=== PATIENT | male | born 1960 | race African-American/Black ===

== ENCOUNTER 2016-09-16 09:52 | Observation (INO) | payer MEDICAID, OTHER ==
[~2016-09-16] VITALS: Ht 188 cm; Wt 159.5 kg
[~2016-09-16 09:52] MED LIST: APIX5TAB PO; DILA50CH CHEW; FAMO40TA PO; HYDR-2768 PO; HYDR10TA23 PO; LEVE500 PO; LEVEMIR SC; MAGN400T19 PO; PRIL20CA PO; PRIN20TA2 PO; TRAZ100 PO; ZOFR4TAB3 SL; ZOLO20CO PO
[2016-09-16] MEDS ORDERED: LORazepam 2 MG/ML VIAL IV PUSH ONE (10:15)
[2016-09-16] MEDS ORDERED: SODIUM CHLORIDE 0.9% FLUSH 5 ML FLUSH IVF PRN (10:15)
--- NOTE | 2016-09-16 10:17 | PD ---
HPI Chief Complaint: Seizure Time Seen by Provider: 10:01 Travel History International Travel<30 days: No Contact w/Intl Traveler<30days: No History of Present Illness HPI This is a 56-year-old male who has a history of seizures and prior stroke with left-sided weakness who presents to the emergency department with involuntary movements and twitching. The patient has had twitching that started this morning. The staff noticed that he was normal at 8 AM but when they checked on him again they saw the he was moving his body back and forth. Patient's never had symptoms like this before. He is on both Keppra and Dilantin for seizures. It's unclear to me, one reports says that he has not been taking his Dilantin but on his medical record it appears that they have recently increased his Dilantin level. The patient has no other complaints. PFSH Past Medical History Anemia: Yes Atrial Fibrillation: Yes Anxiety: Yes Congestive Heart Failure: Yes Cerebrovascular Accident: Yes Dementia: Yes Diabetes: Yes Hypertension: Yes Social History Alcohol Use: No Tobacco Use: No Substance Use: No Allergies-Medications (Allergen,Severity, Reaction): Coded Allergies: No Known Allergies (Unverified , 12/17/15) Reported Meds & Prescriptions Reported Meds & Active Scripts Active Reported Milk of Magnesia Liq (Magnesium Hydroxide) 400 Mg/5 Ml Susp 30 Ml PO Q4HR PRN Novolog Inj (Insulin Aspart) 1,000 Unit/10 Ml Vial 3-12 Units SQ DIRECTED Sliding Scale: 0-70-give orange juice, notify Physician, repeat in 1hr, 71-150=0 units, 151-200=3 units, 201-250=5 units, 251-300=8 units, 301-400=10 units, >400=12 units & repeat BS check in 2hrs, if > 150 notify Loperamide (Loperamide HCl) 2 Mg Cap 4 Mg PO INITIAL DOSE PRN After initial dose of 4mg, give 1 cap (2mg) after each loose stool. Not to exceed 8 caps/24hrs. May take liquid if unable to take capsules Fleet Enema Rectal (Sodium Phosphates Rectal) 7-19 Gm/118 Ml Enem 1 Applic [place] DAILY PRN Dulcolax Supp (Bisacodyl) 10 Mg Supp 10 Mg [place] DAILY PRN Tylenol (Acetaminophen) 325 Mg Tab 650 Mg PO Q4H PRN Glucagon Emergency Inj Kit (Glucagon (Rdna) Inj Kit) 1 Mg Kit 1 Mg IM ONCE PRN Mylanta Liq (Rnhtwrfl-Aocnwdtez-Eznyieucmrq Liq) 200-200-20 Mg/5 Ml Susp 30 Ml PO Q4HR PRN If not relieved within 48hrs contact Physician Dilantin (Phenytoin Extended) 100 Mg Cap 200 Mg PO HS Artificial Tears Opth Drops (Polyvinyl Alcohol) 1.4% Soln 1 Drop EACH EYE BID Thera-M (Multiple Vitamins W/ Minerals) 1 Tab 1 Tab PO DAILY Zoloft (Sertraline HCl) 50 Mg Tab 50 Mg PO DAILY Seroquel (Quetiapine Fumarate) 25 Mg Tab 25 Mg PO HS Magnesium Oxide 400 Mg Tab 400 Mg PO TID Losartan (Losartan Potassium) 50 Mg Tab 50 Mg PO DAILY Levothyroxine (Levothyroxine Sodium) 50 Mcg Tab 50 Mcg PO DAILY Keppra (Levetiracetam) 500 Mg Tab 500 Mg PO Q12HR Levsin (Hyoscyamine Sulfate) 0.125 Mg Tab 0.25 Mg PO TID Hydrochlorothiazide 25 Mg Tab 25 Mg PO DAILY Hydralazine (Hydralazine HCl) 25 Mg Tab 25 Mg PO TID Take with a meal Glipizide 5 Mg Tab 5 Mg PO DAILY Lasix (Furosemide) 40 Mg Tab 40 Mg PO DAILY Eliquis (Apixaban) 2.5 Mg Tab 2.5 Mg PO BID Lanoxin (Digoxin) 0.125 Mg Tab 0.125 Mg PO DAILY AT 5PM Klonopin (Clonazepam) 0.5 Mg Tab 0.5 Mg PO TID Coreg (Carvedilol) 25 Mg Tab 25 Mg PO BID Atorvastatin (Atorvastatin Calcium) 80 Mg Tab 80 Mg PO HS Aspirin 81 Low Dose (Aspirin) 81 Mg Chew 81 Mg PO DAILY Amlodipine (Amlodipine Besylate) 10 Mg Tab 10 Mg PO DAILY Amiodarone (Amiodarone HCl) 200 Mg Tab 200 Mg PO DAILY Acidophilus (Probiotic Product) 1 Cap Cap 1 Cap PO DAILY Review of Systems Except as stated in HPI: all other systems reviewed are Neg Physical Exam Narrative GENERAL:Well appearing, no acute distress SKIN: Warm and dry. HEAD: Atraumatic. Normocephalic. EYES: Pupils equal and round. No injection or drainage. ENT: Moist mucous membranes NECK: Trachea midline. CARDIOVASCULAR: Regular rate and rhythm. No murmur appreciated. RESPIRATORY: Clear to auscultation. Breath sounds equal bilaterally. GASTROINTESTINAL: Abdomen soft, non-tender, nondistended. MUSCULOSKELETAL: No obvious deformities. NEUROLOGICAL: Awake and alert. No obvious cranial nerve deficits. 4 out of 5 strength in the left upper and left lower extremity. Involuntary left upper extremity and left lower extremity jerking with jerking of the head to the left side. PSYCHIATRIC: Appropriate mood and affect; insight and judgment normal. Data Data Last Documented VS Vital Signs Date Time Temp Pulse Resp B/P Pulse Ox O2 Delivery O2 Flow Rate FiO2 09/16/16 10:26 88 18 141/77 98 Room Air 09/16/16 10:21 98.3 Orders Alcohol (Ethanol) (09/16/16 10:02) Complete Blood Count With Diff (09/16/16 10:02) Comprehensive Metabolic Panel (09/16/16 10:02) Drug Screen, Random Urine (09/16/16 10:02) Urinalysis - C+S If Indicated (09/16/16 10:02) Ct Brain W/O Iv Contrast(Rout) (09/16/16 10:02) Blood Glucose (09/16/16 10:02) Ecg Monitoring (09/16/16 10:02) Iv Access Insert/Monitor (09/16/16 10:02) Oximetry (09/16/16 10:02) Sodium Chloride 0.9% Flush (Ns Flush) (09/16/16 10:15) Lorazepam Inj (Ativan Inj) (09/16/16 10:15) Levetiracetam (09/16/16 10:02) Phenytoin (Dilantin) (09/16/16 10:02) Sodium Chlor 0.9% 1000 Ml Inj (Ns 1000 M (09/16/16 11:00) Fosphenytoin Inj (Cerebyx Inj) (09/16/16 12:00) Fosphenytoin Inj (Cerebyx Inj) (09/16/16 12:00) Consult Neurology (09/16/16 ) Admit Order (Ed Use Only) (09/16/16 ) Labs Laboratory Tests Test 09/16/16 09/16/16 10:19 11:00 White Blood Count 6.9 TH/MM3 Red Blood Count 3.54 MIL/MM3 Hemoglobin 11.6 GM/DL Hematocrit 34.6 % Mean Corpuscular Volume 97.9 FL Mean Corpuscular Hemoglobin 32.7 PG Mean Corpuscular Hemoglobin 33.4 % Concent Red Cell Distribution Width 14.4 % Platelet Count 201 TH/MM3 Mean Platelet Volume 8.3 FL Neutrophils (%) (Auto) 70.1 % Lymphocytes (%) (Auto) 15.0 % Monocytes (%) (Auto) 10.4 % Eosinophils (%) (Auto) 3.6 % Basophils (%) (Auto) 0.9 % Neutrophils # (Auto) 4.8 TH/MM3 Lymphocytes # (Auto) 1.0 TH/MM3 Monocytes # (Auto) 0.7 TH/MM3 Eosinophils # (Auto) 0.2 TH/MM3 Basophils # (Auto) 0.1 TH/MM3 CBC Comment DIFF FINAL Differential Comment Sodium Level 139 MEQ/L Potassium Level 5.2 MEQ/L Chloride Level 104 MEQ/L Carbon Dioxide Level 28.4 MEQ/L Anion Gap 7 MEQ/L Blood Urea Nitrogen 24 MG/DL Creatinine 1.36 MG/DL Estimat Glomerular Filtration 66 ML/MIN Rate Random Glucose 142 MG/DL Calcium Level 8.6 MG/DL Total Bilirubin 0.3 MG/DL Aspartate Amino Transf 44 U/L (AST/SGOT) Alanine Aminotransferase 39 U/L (ALT/SGPT) Alkaline Phosphatase 129 U/L Total Protein 7.7 GM/DL Albumin 3.0 GM/DL Phenytoin (Dilantin) Level 6.4 MCG/ML Ethyl Alcohol Level LESS THAN 3 MG/DL Urine Color YELLOW Urine Turbidity CLEAR Urine pH 6.5 Urine Specific [place] 1.014 Urine Protein NEG mg/dL Urine Glucose (UA) NEG mg/dL Urine Ketones NEG mg/dL Urine Occult Blood NEG Urine Nitrite NEG Urine Bilirubin NEG Urine Urobilinogen LESS THAN 2.0 MG/DL Urine Leukocyte Esterase NEG Urine RBC LESS THAN 1 /hpf Urine WBC LESS THAN 1 /hpf Urine Squamous Epithelial <1 /hpf Cells Microscopic Urinalysis Comment CATH-CULT NOT IND Urine Opiates Screen NEG Urine Barbiturates Screen NEG Urine Amphetamines Screen NEG Urine Benzodiazepines Screen NEG Urine Cocaine Screen NEG Urine Cannabinoids Screen NEG MDM Medical Decision Making Medical Screen Exam Complete: Yes Emergency Medical Condition: Yes Interpretation(s) Afebrile, no tachycardia, hypertensive Mild anemia Mild hyperkalemia likely hemolysis Mild renal insufficiency Phenytoin is 6.4 Urine drug screens negative Alcohol is negative Urinalysis: No infection Differential Diagnosis Partial seizure, ischemic stroke, hemorrhagic stroke, tremor, dystonic reaction Narrative Course This is a 56-year-old male who presents to the emergency department with a history of stroke with repetitive jerking movements in the left upper and left lower extremity consistent with a partial seizure. Patient was given 2 mg of IV Ativan and his symptoms improved significantly. He was found to have a subtherapeutic Dilantin level. He was given a fosphenytoin bolus. Labs are obtained which were all reassuring. I spoke to neurology who agreed the patient should be admitted for further evaluation. Physician Communication Physician Communication Discussed with Dr. Hoyt Diagnosis Primary Impression: Partial seizure Admitting Information Admitting Physician Requests: Admit Faye Beltre MD Sep 16, 2016 10:16
[2016-09-16 10:21] VITALS: BP 141/88; PULSE 79; RESP 18; TEMP 98.3; O2SAT 96
[2016-09-16 10:26] VITALS: BP 141/77; PULSE 88; RESP 18; O2SAT 98
[2016-09-16 10:37] LABS: AUTOMATED NEUTROPHIL # 4.8 TH/MM3 (1.8-7.7); BASOPHIL # 0.1 TH/MM3 (0-0.2); BASOPHIL % 0.9 % (0.0-2.0); EOSINOPHIL # 0.2 TH/MM3 (0-0.4); EOSINOPHIL % 3.6 % (0.0-4.0); HEMATOCRIT 34.6 % (39.0-51.0); HEMO FLAGS DIFF FINAL; MEAN CELL VOLUME 97.9 FL (80.0-100.0); MEAN CORPUSCULAR HEMOGLOBIN 32.7 PG (27.0-34.0); MEAN CORPUSCULAR HGB CONC 33.4 % (32.0-36.0); MONO % 10.4 % (0.0-8.0); NEUT % 70.1 % (16.0-70.0); PLATELET COUNT 201 TH/MM3 (150-450); RED BLOOD COUNT 3.54 MIL/MM3 (4.50-5.90); RED CELL DISTRIBUTION WIDTH 14.4 % (11.6-17.2); WHITE BLOOD COUNT 6.9 TH/MM3 (4.0-11.0)
--- NOTE | 2016-09-16 10:51 | RADRPT ---
EXAM DATE/TIME: 09/16/2016 10:22 [place] COMPARISON: CT BRAIN W/O CONTRAST, May 08, 2015, 20:16. INDICATIONS : Twitching for one day. RADIATION DOSE: 56.35 CTDIvol (mGy) MEDICAL HISTORY : stroke SURGICAL HISTORY : Craniotomy. ENCOUNTER: Initial ACUITY: 1 day PAIN SCALE: 5/10 LOCATION: cranial TECHNIQUE: Multiple contiguous axial images were obtained of the head. Using automated exposure control and adj ustment of the mA and/or kV according to patient size, radiation dose was kept as low as reasonably a chievable to obtain optimal diagnostic quality images. FINDINGS: Image quality is degraded by motion artifact. There has been prior right craniotomy and craniectomy a nd some type of mesh implant is present along the high right calvarium. There is stable large area of encephalomalacia involving the right frontal and parietal lobes as well as a portion of the right te mporal lobe. There is mild ex vacuo dilatation of the right lateral ventricle. No midline shift or he rniation is present. Ventricles are normal in size. No acute blood products or is identified and no m ass lesion or findings to suggest acute ischemia are seen. CONCLUSION: Motion degraded but stable examination. No acute finding is identified. There has been prior right-si de surgery with stable large area of encephalomalacia primarily involving the frontal and parietal lo bes. Benito Doss MD on September 16, 2016 at 10:47 Board Certified Radiologist. This report was verified electronically.
[2016-09-16 10:54] LABS: ANION GAP 7 MEQ/L (5-15); AST (GOT) 44 U/L (15-37); BICARBONATE 28.4 MEQ/L (21.0-32.0); BLOOD UREA NITROGEN 24 MG/DL (7-18); CHLORIDE 104 MEQ/L (98-107); GLOMERULAR FILTRATION RATE 66 ML/MIN (>89); SODIUM (NA) 139 MEQ/L (136-145)
[2016-09-16] MEDS ORDERED: SODIUM CHLOR 0.9% 1000 ML INJ 1,000 ML IV SCH (11:00)
[2016-09-16 11:02] LABS: POTASSIUM 5.2 MEQ/L (3.5-5.1)
[2016-09-16 11:03] LABS: ALKALINE PHOSPHATASE 129 U/L (45-117); ALT (GPT) 39 U/L (12-78); TOTAL BILIRUBIN ADULT 0.3 MG/DL (0.2-1.0)
[2016-09-16 11:28] LABS: BLOOD, URINE NEG (NEG); COMMENT (UR) CATH-CULT NOT IND; CULTURE IF INDICATED CATH CULTURE NOT IND; GLUCOSE,URINE NEG (NEG); KETONE, URINE NEG (NEG); NITRITE,URINE NEG (NEG); PH, URINE 6.5 (5.0-8.5); SQUAMOUS EPITHELIAL CELL URINE <1 /hpf (0-5); URINE COLOR YELLOW (YELLW/STRAW)
[2016-09-16] MEDS ORDERED: AMLO10TA2 PO (11:58)
[2016-09-16] MEDS ORDERED: AMIO200T PO (11:58)
[2016-09-16] MEDS ORDERED: TYLE325T PO (11:58)
[2016-09-16] MEDS ORDERED: GLIP5TAB8 PO (11:58)
[2016-09-16] MEDS ORDERED: NOVOLOGP2 SQ (11:58)
[2016-09-16] MEDS ORDERED: LEVE500 PO (11:58)
[2016-09-16] MEDS ORDERED: ASPI81CH3 PO (11:58)
[2016-09-16] MEDS ORDERED: ZOLO50TA PO (11:58)
[2016-09-16] MEDS ORDERED: FURO1TAB60 PO (11:58)
[2016-09-16] MEDS ORDERED: HYDR25TA35 PO (11:58)
[2016-09-16] MEDS ORDERED: CLON.5 PO (11:58)
[2016-09-16] MEDS ORDERED: FLEEENE3 PR (11:58)
[2016-09-16] MEDS ORDERED: LOSA50TA PO (11:58)
[2016-09-16] MEDS ORDERED: THERTAB17 PO (11:58)
[2016-09-16] MEDS ORDERED: POLY99.0 EACH EYE (11:58)
[2016-09-16] MEDS ORDERED: LOPE2CAP PO (11:58)
[2016-09-16] MEDS ORDERED: HYDR25TA5 PO (11:58)
[2016-09-16] MEDS ORDERED: MYLASUS2 PO (11:58)
[2016-09-16] MEDS ORDERED: SERO25TA PO (11:58)
[2016-09-16] MEDS ORDERED: APIX2.5T PO (11:58)
[2016-09-16] MEDS ORDERED: LEVS0.123 PO (11:58)
[2016-09-16] MEDS ORDERED: LANO0.1212 PO (11:58)
[2016-09-16] MEDS ORDERED: DULC10SU3 PR (11:58)
[2016-09-16] MEDS ORDERED: ATOR1TAB18 PO (11:58)
[2016-09-16] MEDS ORDERED: CORE25TA PO (11:58)
[2016-09-16] MEDS ORDERED: PROB1CAP12 PO (11:58)
[2016-09-16] MEDS ORDERED: GLUC1KIT IM (11:58)
[2016-09-16] MEDS ORDERED: DILA100C PO (11:58)
[2016-09-16] MEDS ORDERED: LEVO50TA4 PO (11:58)
[2016-09-16] MEDS ORDERED: MILKSUS PO (11:58)
[2016-09-16] MEDS ORDERED: MAGN400T2 PO (11:58)
[2016-09-16] MEDS ORDERED: FOSPHENYTOIN INJ 1,500 MGPE in SODIUM CHLORIDE 0.9% INJ 100 ML IV ONE (12:00)
[2016-09-16] MEDS ORDERED: FOSPHENYTOIN SODIUM 500 MG PE/10 ML VIAL IV ONE (12:00)
[2016-09-16] MEDS ORDERED: ACETAMINOPHEN 325 MG TAB PO PRN (12:45)
[2016-09-16] MEDS ORDERED: ENOXAPARIN SODIUM 40 MG/0.4 ML SYRINGE SQ SCH ×2 (12:45→15:00)
[2016-09-16] MEDS ORDERED: MAGNESIUM HYDROXIDE SUSP 30 ML CUP PO PRN (12:45)
[2016-09-16] MEDS ORDERED: GLUCAGON 1 MG/ML VIAL OTHER PRN (12:45)
[2016-09-16] MEDS ORDERED: DEXTROSE 50% IN WATER 50 ML VIAL(D50) IV PUSH PRN (12:45)
[2016-09-16 12:49] LABS: AMPHETAMINE, URINE NEG (NEG); BARBITURATES, URINE NEG (NEG); COCAINE, URINE NEG (NEG)
[2016-09-16] MEDS: PHENYTOIN SODIUM 100 MG CAP PO SCH ×2 (14:00→22:41)
[2016-09-16] MEDS: clonazePAM 0.5 MG TAB PO SCH ×2 (14:19→16:19)
[2016-09-16 16:00] VITALS: BP 133/66; PULSE 73; RESP 16; TEMP 96; O2SAT 100
[2016-09-16] MEDS: INSULIN ASPART SUPPLEMENTAL SCALE SQ SCH ×2 (16:00→21:00)
[2016-09-16] MEDS: hydrALAZINE HCL 25 MG TAB PO SCH ×2 (16:19→17:29)
--- NOTE | 2016-09-16 16:43 | PD.CONS ---
History of Present Illness Service Neurology Consult Requested By medical Reason for Consult juan j Primary Care Physician Robert Stephenosn M.D. History of Present Illness 56-year-old male who has a history of seizures and prior stroke with left-sided weakness who presents to the emergency department with involuntary movements and twitching. witnessed by medical personnel. given ativan with cessation. dilantin level on eliquis, keppra, dilantin. ct brain no acute lesion. 11/2014 [place] stroke with left sided weakness anf juan j's. follows with pcp, no neurologist locally. states dilantin level fluctuates and asks for alternatives. PFSH Past Medical History Anemia: Yes Atrial Fibrillation: Yes Anxiety: Yes Congestive Heart Failure: Yes Cerebrovascular Accident: Yes Dementia: Yes Diabetes: Yes Hypertension: Yes Social History Alcohol Use: No Tobacco Use: No Substance Use: No Allergies-Medications (Allergen,Severity, Reaction): Coded Allergies: No Known Allergies (Unverified , 12/17/15) Reported Meds & Prescriptions Reported Meds & Active Scripts Active Reported Milk of Magnesia Liq (Magnesium Hydroxide) 400 Mg/5 Ml Susp 30 Ml PO Q4HR PRN Novolog Inj (Insulin Aspart) 1,000 Unit/10 Ml Vial 3-12 Units SQ DIRECTED Sliding Scale: 0-70-give orange juice, notify Physician, repeat in 1hr, 71-150=0 units, 151-200=3 units, 201-250=5 units, 251-300=8 units, 301-400=10 units, >400=12 units & repeat BS check in 2hrs, if > 150 notify Loperamide (Loperamide HCl) 2 Mg Cap 4 Mg PO INITIAL DOSE PRN After initial dose of 4mg, give 1 cap (2mg) after each loose stool. Not to exceed 8 caps/24hrs. May take liquid if unable to take capsules Fleet Enema Rectal (Sodium Phosphates Rectal) 7-19 Gm/118 Ml Enem 1 Applic [place] DAILY PRN Dulcolax Supp (Bisacodyl) 10 Mg Supp 10 Mg [place] DAILY PRN Tylenol (Acetaminophen) 325 Mg Tab 650 Mg PO Q4H PRN Glucagon Emergency Inj Kit (Glucagon (Rdna) Inj Kit) 1 Mg Kit 1 Mg IM ONCE PRN Mylanta Liq (Ekxgkkhd-Iphkijvir-Hhzkizdenwu Liq) 200-200-20 Mg/5 Ml Susp 30 Ml PO Q4HR PRN If not relieved within 48hrs contact Physician Dilantin (Phenytoin Extended) 100 Mg Cap 200 Mg PO HS Artificial Tears Opth Drops (Polyvinyl Alcohol) 1.4% Soln 1 Drop EACH EYE BID Thera-M (Multiple Vitamins W/ Minerals) 1 Tab 1 Tab PO DAILY Zoloft (Sertraline HCl) 50 Mg Tab 50 Mg PO DAILY Seroquel (Quetiapine Fumarate) 25 Mg Tab 25 Mg PO HS Magnesium Oxide 400 Mg Tab 400 Mg PO TID Losartan (Losartan Potassium) 50 Mg Tab 50 Mg PO DAILY Levothyroxine (Levothyroxine Sodium) 50 Mcg Tab 50 Mcg PO DAILY Keppra (Levetiracetam) 500 Mg Tab 500 Mg PO Q12HR Levsin (Hyoscyamine Sulfate) 0.125 Mg Tab 0.25 Mg PO TID Hydrochlorothiazide 25 Mg Tab 25 Mg PO DAILY Hydralazine (Hydralazine HCl) 25 Mg Tab 25 Mg PO TID Take with a meal Glipizide 5 Mg Tab 5 Mg PO DAILY Lasix (Furosemide) 40 Mg Tab 40 Mg PO DAILY Eliquis (Apixaban) 2.5 Mg Tab 2.5 Mg PO BID Lanoxin (Digoxin) 0.125 Mg Tab 0.125 Mg PO DAILY AT 5PM Klonopin (Clonazepam) 0.5 Mg Tab 0.5 Mg PO TID Coreg (Carvedilol) 25 Mg Tab 25 Mg PO BID Atorvastatin (Atorvastatin Calcium) 80 Mg Tab 80 Mg PO HS Aspirin 81 Low Dose (Aspirin) 81 Mg Chew 81 Mg PO DAILY Amlodipine (Amlodipine Besylate) 10 Mg Tab 10 Mg PO DAILY Amiodarone (Amiodarone HCl) 200 Mg Tab 200 Mg PO DAILY Acidophilus (Probiotic Product) 1 Cap Cap 1 Cap PO DAILY Review of Systems Except as stated in HPI: all other systems reviewed are Neg Review of Systems All other ROS: ROS reviewed as documented in chart Past Family Social History Allergies: Coded Allergies: No Known Allergies (Unverified , 12/17/15) Active Ordered Medications Current Medications Medications (Trade) Dose Ordered Sig/Jacey Route Start Time Stop Time Status Last Admin (NS Flush) 2 ml UNSCH PRN IVF 09/16/16 10:15 (Tylenol) 650 mg Q4H PRN PO 09/16/16 12:45 (Cordarone) 200 mg DAILY PO 09/17/16 09:00 (Norvasc) 10 mg DAILY PO 09/17/16 09:00 (Eliquis) 2.5 mg BID PO 09/16/16 21:00 (Aspirin Chew) 81 mg DAILY PO 09/17/16 09:00 (Lipitor) 80 mg HS PO 09/16/16 21:00 (Coreg) 25 mg BID PO 09/16/16 21:00 (KlonoPIN) 0.5 mg TID PO 09/16/16 13:00 09/16/16 16:19 (Lasix) 40 mg DAILY PO 09/17/16 09:00 (Glucotrol) 5 mg DAILY PO 09/17/16 09:00 (Apresoline) 25 mg TID PO 09/16/16 13:00 09/16/16 16:19 (Keppra) 500 mg Q12HR PO 09/16/16 21:00 (Synthroid) 50 mcg DAILY PO 09/17/16 09:00 (Milk Of Magnjay Liq) 30 ml Q4HR PRN PO 09/16/16 12:45 (Tears Naturale Opth Soln) 1 drop BID EACH EYE 09/16/16 21:00 (SEROquel) 25 mg HS PO 09/16/16 21:00 (Zoloft) 50 mg DAILY PO 09/17/16 09:00 (Dilantin) 100 mg Q8HR PO 09/16/16 14:00 (D50w (Vial) Inj) 25 ml UNSCH PRN IV PUSH 09/16/16 12:45 (Glucagon Inj) 1 mg UNSCH PRN OTHER 09/16/16 12:45 (Lovenox Inj) 40 mg Q24H SQ 09/16/16 15:00 09/16/16 14:19 (Pepcid) 20 mg BID PO 09/16/16 21:00 Exam I&O / VS Vital Signs Date Time Temp Pulse Resp B/P Pulse Ox O2 Delivery O2 Flow Rate FiO2 09/16/16 16:00 96.0 73 16 133/66 100 09/16/16 10:26 88 18 141/77 98 Room Air 09/16/16 10:26 88 20 98 Room Air 09/16/16 10:26 18 98 Room Air 09/16/16 10:21 98.3 79 18 141/88 96 General: Alert and Oriented, No acute distress Eye: EOMI Respiratory: Non-labored respirations Musculoskeletal: ROM Neurologic: Alert Psychiatric: Cooperative, Appropriate mood & affect Exam Comments perry watson 3, follows, slow speech, mild left spastic hemiparesis 4/5 Review/Management Diagnosis/Plan: (1) Seizure disorder Plan: subtherapeutic dilantin levels recs eeg add topamax, continue dilantin and keppra; plan to titrate off dilantin in the future p.t., s.t. follow exam possible d/c tomorrow no driving/fall precautions (2) Chronic right arterial ischemic stroke, MCA (middle cerebral artery) Plan: on eliquis continue (3) Atrial fibrillation (4) Anxiety (5) HTN (hypertension) (6) CHF (congestive heart failure) Problem Qualifiers (1) Atrial fibrillation: Qualified Code: I48.91 - Atrial fibrillation, unspecified type (2) HTN (hypertension): Qualified Code: I10 - Essential hypertension (3) CHF (congestive heart failure): Alfred Barber MD Sep 16, 2016 16:43
--- NOTE | 2016-09-16 16:46 | HHI.PR ---
Objective Objective Results - Vital Signs Date Time Temp Pulse Resp B/P Pulse Ox O2 Delivery O2 Flow Rate FiO2 09/16/16 16:00 96.0 73 16 133/66 100 09/16/16 10:26 88 18 141/77 98 Room Air 09/16/16 10:26 88 20 98 Room Air 09/16/16 10:26 18 98 Room Air 09/16/16 10:21 98.3 79 18 141/88 96 Result Diagram: 09/16/16 1019 09/16/16 1019 Other Results Laboratory Tests Test 09/16/16 09/16/16 10:19 11:00 White Blood Count 6.9 Red Blood Count 3.54 Hemoglobin 11.6 Hematocrit 34.6 Mean Corpuscular Volume 97.9 Mean Corpuscular Hemoglobin 32.7 Mean Corpuscular Hemoglobin 33.4 Concent Red Cell Distribution Width 14.4 Platelet Count 201 Mean Platelet Volume 8.3 Neutrophils (%) (Auto) 70.1 Lymphocytes (%) (Auto) 15.0 Monocytes (%) (Auto) 10.4 Eosinophils (%) (Auto) 3.6 Basophils (%) (Auto) 0.9 Neutrophils # (Auto) 4.8 Lymphocytes # (Auto) 1.0 Monocytes # (Auto) 0.7 Eosinophils # (Auto) 0.2 Basophils # (Auto) 0.1 CBC Comment DIFF FINAL Differential Comment Sodium Level 139 Potassium Level 5.2 Chloride Level 104 Carbon Dioxide Level 28.4 Anion Gap 7 Blood Urea Nitrogen 24 Creatinine 1.36 Estimat Glomerular Filtration 66 Rate Random Glucose 142 Calcium Level 8.6 Total Bilirubin 0.3 Aspartate Amino Transf 44 (AST/SGOT) Alanine Aminotransferase 39 (ALT/SGPT) Alkaline Phosphatase 129 Total Protein 7.7 Albumin 3.0 Phenytoin (Dilantin) Level 6.4 Ethyl Alcohol Level LESS THAN 3 Urine Color YELLOW Urine Turbidity CLEAR Urine pH 6.5 Urine Specific [place] 1.014 Urine Protein NEG Urine Glucose (UA) NEG Urine Ketones NEG Urine Occult Blood NEG Urine Nitrite NEG Urine Bilirubin NEG Urine Urobilinogen LESS THAN 2.0 Urine Leukocyte Esterase NEG Urine RBC LESS THAN 1 Urine WBC LESS THAN 1 Urine Squamous Epithelial <1 Cells Microscopic Urinalysis Comment CATH-CULT NOT IND Urine Opiates Screen NEG Urine Barbiturates Screen NEG Urine Amphetamines Screen NEG Urine Benzodiazepines Screen NEG Urine Cocaine Screen NEG Urine Cannabinoids Screen NEG Physical Exam Physical Exam PT is seen & examined d/w Sarah d/w PT see Orders see H&P by sarah jolley f/u Nancy Hoyt MD Sep 16, 2016 16:46
[2016-09-16 20:36] VITALS: BP 118/68; PULSE 69; RESP 19; TEMP 98.1; O2SAT 94
[2016-09-16] MEDS: PHENYTOIN SUSP 100 MG/4 ML CUP PO SCH (22:00)
[2016-09-16] MEDS: TOPIRAMATE 25 MG TAB PO SCH (22:41)
[2016-09-16] MEDS: APIXABAN 2.5 MG TABLET PO SCH (22:41)
[2016-09-16] MEDS: FAMOTIDINE 20 MG TAB PO SCH (22:41)
[2016-09-16] MEDS: levETIRAcetam 500 MG TAB PO SCH (22:41)
[2016-09-16] MEDS: CARVEDILOL 12.5 MG TAB PO SCH (22:42)
[2016-09-16] MEDS: QUEtiapine FUMARATE 25 MG TAB PO SCH (22:42)
[2016-09-16] MEDS: ATORVASTATIN 80 MG TAB PO SCH (22:53)
[2016-09-16] MEDS: ARTIFICIAL TEARS OPTH SOLN 15 ML BTL EACH EYE SCH (22:53)
[2016-09-16 23:35] VITALS: BP 128/79; PULSE 70; RESP 19; TEMP 97; O2SAT 95
[2016-09-17 04:48] VITALS: BP 128/76; PULSE 66; RESP 19; TEMP 96.7; O2SAT 97
[2016-09-17] MEDS: PHENYTOIN SUSP 100 MG/4 ML CUP PO SCH (05:40)
[2016-09-17] MEDS: PHENYTOIN SODIUM 100 MG CAP PO SCH ×3 (05:40→21:02)
[2016-09-17] MEDS: INSULIN ASPART SUPPLEMENTAL SCALE SQ SCH ×4 (05:41→21:00)
[2016-09-17 08:00] VITALS: BP 136/84; PULSE 76; RESP 20; TEMP 97.2; O2SAT 96
--- NOTE | 2016-09-17 08:42 | HHI.PR ---
Review/Management Diagnosis/Plan: (1) Seizure disorder Plan: subtherapeutic dilantin levels recs add topamax, continue dilantin and keppra; plan to titrate off dilantin in the future p.t., s.t. follow exam possible d/c today if stable dilantin levels and scan no driving/fall precautions (2) Chronic right arterial ischemic stroke, MCA (middle cerebral artery) Plan: on eliquis continue (3) Atrial fibrillation (4) Anxiety (5) HTN (hypertension) (6) CHF (congestive heart failure) Subjective Subjective Comments No acute events reported No headache No chest pain No dyspnea Active Medications Current Medications Medications (Trade) Dose Ordered Sig/Jacey Route Start Time Stop Time Status Last Admin (NS Flush) 2 ml UNSCH PRN IVF 09/16/16 10:15 (Tylenol) 650 mg Q4H PRN PO 09/16/16 12:45 (Cordarone) 200 mg DAILY PO 09/17/16 09:00 (Norvasc) 10 mg DAILY PO 09/17/16 09:00 (Eliquis) 2.5 mg BID PO 09/16/16 21:00 09/16/16 22:41 (Aspirin Chew) 81 mg DAILY PO 09/17/16 09:00 (Lipitor) 80 mg HS PO 09/16/16 21:00 09/16/16 22:53 (Coreg) 25 mg BID PO 09/16/16 21:00 09/16/16 22:42 (KlonoPIN) 0.5 mg TID PO 09/16/16 13:00 09/16/16 16:19 (Lasix) 40 mg DAILY PO 09/17/16 09:00 (Glucotrol) 5 mg DAILY PO 09/17/16 09:00 (Apresoline) 25 mg TID PO 09/16/16 13:00 09/16/16 16:19 (Keppra) 500 mg Q12HR PO 09/16/16 21:00 09/16/16 22:41 (Synthroid) 50 mcg DAILY PO 09/17/16 09:00 (Milk Of Magnesia Liq) 30 ml Q4HR PRN PO 09/16/16 12:45 (Tears Naturale Opth Soln) 1 drop BID EACH EYE 09/16/16 21:00 09/16/16 22:53 (SEROquel) 25 mg HS PO 09/16/16 21:00 09/16/16 22:42 (Zoloft) 50 mg DAILY PO 09/17/16 09:00 (Dilantin) 100 mg Q8HR PO 09/16/16 14:00 09/17/16 05:40 (D50w (Vial) Inj) 25 ml UNSCH PRN IV PUSH 09/16/16 12:45 (Glucagon Inj) 1 mg UNSCH PRN OTHER 09/16/16 12:45 (Lovenox Inj) 40 mg Q24H SQ 09/16/16 15:00 09/16/16 14:19 (Pepcid) 20 mg BID PO 09/16/16 21:00 09/16/16 22:41 (Topamax) 25 mg Q12HR PO 09/16/16 21:00 09/16/16 22:41 (Dilantin Liq) 150 mg Q8HR PO 09/16/16 22:00 Allergies Allergies Coded Allergies No Known Allergies (Unverified12/17/15) Review of Systems All other ROS: ROS reviewed as documented in chart Exam I&O / VS 09/16/16 09/16/16 09/17/16 15:00 23:00 07:00 Output Total 600 ml Balance -600 ml Output Urine Total 600 ml # Voids 3 # Bowel Movements 1 Vital Signs Date Time Temp Pulse Resp B/P Pulse Ox O2 Delivery O2 Flow Rate FiO2 09/17/16 04:48 96.7 66 19 128/76 97 09/16/16 23:35 97.0 70 19 128/79 95 09/16/16 20:36 98.1 69 19 118/68 94 09/16/16 16:00 96.0 73 16 133/66 100 09/16/16 10:26 88 18 141/77 98 Room Air 09/16/16 10:26 88 20 98 Room Air 09/16/16 10:26 18 98 Room Air 09/16/16 10:21 98.3 79 18 141/88 96 General: Alert and Oriented, No acute distress Eye: EOMI Respiratory: Non-labored respirations Musculoskeletal: ROM Neurologic: Alert Psychiatric: Cooperative, Appropriate mood & affect Exam Comments aleert, ox 3, follows, slow speech, mild dysarthria, mild left spastic hemiparesis 4/5 Objective Micro and Labs Laboratory Tests Test 09/16/16 09/16/16 09/16/16 10:19 11:00 19:40 White Blood Count 6.9 Red Blood Count 3.54 Hemoglobin 11.6 Hematocrit 34.6 Mean Corpuscular Volume 97.9 Mean Corpuscular Hemoglobin 32.7 Mean Corpuscular Hemoglobin 33.4 Concent Red Cell Distribution Width 14.4 Platelet Count 201 Mean Platelet Volume 8.3 Neutrophils (%) (Auto) 70.1 Lymphocytes (%) (Auto) 15.0 Monocytes (%) (Auto) 10.4 Eosinophils (%) (Auto) 3.6 Basophils (%) (Auto) 0.9 Neutrophils # (Auto) 4.8 Lymphocytes # (Auto) 1.0 Monocytes # (Auto) 0.7 Eosinophils # (Auto) 0.2 Basophils # (Auto) 0.1 CBC Comment DIFF FINAL Differential Comment Sodium Level 139 Potassium Level 5.2 Chloride Level 104 Carbon Dioxide Level 28.4 Anion Gap 7 Blood Urea Nitrogen 24 Creatinine 1.36 Estimat Glomerular Filtration 66 Rate Random Glucose 142 Calcium Level 8.6 Total Bilirubin 0.3 Aspartate Amino Transf 44 (AST/SGOT) Alanine Aminotransferase 39 (ALT/SGPT) Alkaline Phosphatase 129 Total Protein 7.7 Albumin 3.0 Phenytoin (Dilantin) Level 6.4 Ethyl Alcohol Level LESS THAN 3 Urine Color YELLOW Urine Turbidity CLEAR Urine pH 6.5 Urine Specific [place] 1.014 Urine Protein NEG Urine Glucose (UA) NEG Urine Ketones NEG Urine Occult Blood NEG Urine Nitrite NEG Urine Bilirubin NEG Urine Urobilinogen LESS THAN 2.0 Urine Leukocyte Esterase NEG Urine RBC LESS THAN 1 Urine WBC LESS THAN 1 Urine Squamous Epithelial <1 Cells Microscopic Urinalysis Comment CATH-CULT NOT IND Urine Opiates Screen NEG Urine Barbiturates Screen NEG Urine Amphetamines Screen NEG Urine Benzodiazepines Screen NEG Urine Cocaine Screen NEG Urine Cannabinoids Screen NEG Erythrocyte Sedimentation Rate 1 Vitamin B12 Level 489 Thyroid Stimulating Hormone 1.310 3rd Gen Problem Qualifiers (1) Atrial fibrillation: Qualified Code: I48.91 - Atrial fibrillation, unspecified type (2) HTN (hypertension): Qualified Code: I10 - Essential hypertension (3) CHF (congestive heart failure): Alfred Barber MD Sep 17, 2016 08:42
[2016-09-17] MEDS ORDERED: PROBIOTIC PRODUCT PO SCH (09:00)
[2016-09-17 09:33] LABS: BICARBONATE 30.6 MEQ/L (21.0-32.0); POTASSIUM 3.7 MEQ/L (3.5-5.1)
[2016-09-17] MEDS: ARTIFICIAL TEARS OPTH SOLN 15 ML BTL EACH EYE SCH ×2 (09:56→21:00)
--- NOTE | 2016-09-17 09:56 | MH ---
cc: FARIDEHKENNYMAGDALENAKELECHI DATE OF ADMISSION: 09/16/2016 CHIEF COMPLAINT: Muscular twitching. HISTORY OF PRESENT ILLNESS: This is a pleasant 56-year-old black male who is currently staying in the [facility] for rehab. He has multiple medical comorbidities which include a previous stroke, diabetes, hypertension, anemia and atrial fibrillation. He was in the facility at 8:00 a.m. when the staff noticed him start to twitch. He was moving his whole body back and forth in this twitching movement. The patient was alert, oriented and able to talk but could not control this involuntary movement. The patient is known to be on Keppra and Dilantin and has been taking all of his medications as he is supposed to, but had not had a recent dilantin level. The patient denied any chest pain, denied any shortness of breath at rest but does state that he gets short of breath with any type of exertion. The patient denies any headache. Denies any major weight gain or weight loss. His appetite is good. He is morbidly obese and has not had any weight gain or weight loss in the past year. The patient has noted these same type of involuntary movements before. The patient has no current fever or chills but his sister states that he did have fever approximately a week ago. The patient denies any cough. He does complain of a slight sore throat on the left side and during exam, he does seem to have increased amounts of saliva and/or mucus in his mouth. In the emergency room, the patient had a dilantin level drawn which was found to be low. He received a dilantin bolus of 1500 milligrams x1 and started back on his p.o. dose. PAST MEDICAL HISTORY: 1. Anemia. 2. Atrial fibrillation. 3. Anxiety disorder. 4. History of illicit drug disorder. 5. Congestive heart failure. 6. CVA. 7. Dementia. 8. Diabetes type 2. 9. Hypertension. 10. Previous fracture of the fifth finger on his left hand. 11. Chronic kidney disease (stated per sister). PAST SURGICAL HISTORY: 1. Tracheotomy. 2. Right-sided brain surgery. ALLERGIES: NO KNOWN ALLERGIES. MEDICATIONS: Reported on admission: 1. Dilantin Infatabs 150 milligram chew three times a day. 2. Magnesium oxide 400 milligrams daily. 3. Lisinopril 20 milligrams daily. 4. Hydrochlorothiazide 25 milligrams daily. 5. Hydralazine 25 milligrams daily. 6. Pepcid 40 milligrams by mouth twice a day. 7. Eliquis 5 milligrams daily. 8. Keppra 500 milligrams p.o. twice a day. 9. Prilosec 20 milligrams p.o. daily. 10. Levemir insulin 14 units subcutaneous at bedtime. 11. Trazodone 100 milligrams p.o. at bedtime. 12. Zoloft 60 milligrams daily. SOCIAL HISTORY: The patient is single. Currently has been living in the care home according to the sister. He has never had any tobacco use. No alcohol use but he has in the past been a crack cocaine user. He states he quit in 2005 and has had no type of illicit drugs since. FAMILY HISTORY: Myocardial infarction, hypertension, diabetes, cancer. REVIEW OF SYSTEMS: A twelve-point review of systems was done. Positives noted is his sore throat, his involuntary muscle twitching which has ceased/resolved at this time. Bilateral lower leg extremity edema. All other systems were negative or unremarkable. PHYSICAL EXAMINATION: GENERAL: This is a well-nourished morbidly obese black male who looks to be his stated age resting in the bed. He is alert and oriented and appropriate with his responses. He is a fair historian. SKIN: His skin is warm, dry. HEAD, EYES, EARS, NOSE, THROAT: Normocephalic and atraumatic. Pupils equal, round and reactive to light and accommodation at 2. No drainage noted. The mucous membranes are pale-pink, moist. NECK: Trachea is midline. HEART: Heart sounds have a regular rate and rhythm, systolic murmur noted at the lower left sternal border. No rubs or gallops. RESPIRATORY: Clear to auscultation anteriorly and posteriorly. His breath sounds are equal bilaterally. GASTROINTESTINAL: Obese, soft abdomen, nontender, nondistended. Active bowel sounds in all four quadrants. MUSCULOSKELETAL: He does move his extremities with purpose. He has some mild left-sided weakness secondary to a previous stroke. 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 He does have lower extremity edema; the left is 2+/4+, the right is 1+/4+. NEUROLOGIC: He is awake and alert x4, appropriate. No extremity jerking or involuntary movement at this time. PSYCHIATRIC: Appropriate mood and affect. Judgment is normal. LAB DATA: Complete blood count shows white count of 6.9, RBCs 3.54, hemoglobin 11.6, hematocrit 34.6, platelet count 201,000. Neutrophil percentage auto is 70.1. Chemistry level shows sodium 139, potassium 5.2, chloride 104, carbon dioxide 28.4, anion gap is 7, BUN is 24, creatinine is 1.36, GFR is 66, random glucose is 142. AST 44, ALT 39, alkaline phosphatase 129. Albumin is 3. Urine color is yellow, clear, pH of 6.5, specific gravity 1.014, negative for protein, glucose, ketones, occult blood, nitrites. A culture is not indicated. IMAGING STUDIES: Head CT is motion-degraded but stable exam. No acute findings are identified. There has been prior right-sided surgery with stable large area of encephalomalacia primarily involving the frontal or parietal lobes. ASSESSMENT: 1. Rule out CVA. 2. Seizure disorder / low dilantin level. 3. Congestive heart failure, history of. 4. Diabetes mellitus type 2. 5. Hypertension. 6. Anxiety. 7. Atrial fibrillation. 8. Hyperkalemia, mild. 9. Acute kidney injury versus chronic kidney disease. 10. Moderate protein-calorie malnutrition. 11. He will have PRNs for fever. 12. Will monitor heart rate, respiratory rate and blood pressure. 13. Reconcile his medications. 14. He will be on a baby aspirin daily. 15. Statin medications. 16. Klonopin 0.5 milligrams three times a day. 17. Lasix 40 milligrams scheduled daily. 18. Glucotrol. 19. Will place him on telemetry. 20. Will keep case management involved with discharge planning. 21. At this time, the plan will be for the patient to go back to [facility]. 22. Keep the patient on Eliquis 2.5 milligrams p.o. twice a day. 23. Peptic ulcer disease prophylaxis with Pepcid 20 milligrams p.o. twice a day. The patient is a full code. Full aggressive care. We will monitor his needs. This has been discussed with Dr. Hoyt and discussed with the patient, discussed with his sister, discussed with Nurse Benito. Dictated by CRISTINA Herrera for Dr. Hoyt. MD JOVANNY Vaca/PEDRO /3:12 PM /9:56 AM PT is seen & examined d/w Sarah d/w PT see Orders see H&P by sarah jolley f/u Nancy Hoyt MD Sep 16, 2016 16:46 MTDD
[2016-09-17] MEDS: levETIRAcetam 500 MG TAB PO SCH ×3 (09:57→21:02)
[2016-09-17] MEDS: SERTRALINE HCL 50 MG TAB PO SCH (09:58)
[2016-09-17] MEDS: hydrALAZINE HCL 25 MG TAB PO SCH ×4 (09:58→18:33)
[2016-09-17] MEDS: glipiZIDE 5 MG TAB PO SCH (09:58)
[2016-09-17] MEDS: AMIODARONE 200 MG TAB PO SCH (09:58)
[2016-09-17] MEDS: CARVEDILOL 12.5 MG TAB PO SCH ×2 (09:58→21:03)
[2016-09-17] MEDS: ASPIRIN 81 MG CHEW TAB PO SCH (09:58)
[2016-09-17] MEDS: FAMOTIDINE 20 MG TAB PO SCH ×2 (09:59→21:02)
[2016-09-17] MEDS: FUROSEMIDE 40 MG TAB PO SCH (09:59)
[2016-09-17] MEDS: LEVOTHYROXINE SODIUM 50 MCG TAB PO SCH (09:59)
[2016-09-17] MEDS: clonazePAM 0.5 MG TAB PO SCH ×4 (09:59→18:33)
[2016-09-17] MEDS: TOPIRAMATE 25 MG TAB PO SCH ×2 (09:59→21:03)
[2016-09-17] MEDS: APIXABAN 2.5 MG TABLET PO SCH ×2 (09:59→21:03)
[2016-09-17 12:24] VITALS: BP 136/78; PULSE 74; RESP 20; TEMP 96.4; O2SAT 98
--- NOTE | 2016-09-17 12:31 | HHI.PR ---
Subjective History of Present Illness I am ok No MORE SEIZURE no twitching/ jerking no headache no N/v no fever or chills No cough or sputum offers no other c/o sister is at bedside Vitals/Results Intake & Output 09/16/16 09/16/16 09/17/16 15:00 23:00 07:00 Output Total 600 ml Balance -600 ml Output Urine Total 600 ml # Voids 3 # Bowel Movements 1 Vital Signs Vital Signs Date Time Temp Pulse Resp B/P Pulse Ox O2 Delivery O2 Flow Rate FiO2 09/17/16 12:24 96.4 74 20 136/78 98 09/17/16 08:00 97.2 76 20 136/84 96 09/17/16 04:48 96.7 66 19 128/76 97 09/16/16 23:35 97.0 70 19 128/79 95 09/16/16 20:36 98.1 69 19 118/68 94 09/16/16 16:00 96.0 73 16 133/66 100 CBC/BMP: 09/16/16 1019 09/17/16 0800 Lab Results Laboratory Tests Test 09/16/16 09/17/16 19:40 08:00 Erythrocyte Sedimentation Rate 1 mm/hr Vitamin B12 Level 489 PG/ML Thyroid Stimulating Hormone 1.310 uIU/ML 3rd Gen Sodium Level 143 MEQ/L Potassium Level 3.7 MEQ/L Chloride Level 105 MEQ/L Carbon Dioxide Level 30.6 MEQ/L Anion Gap 7 MEQ/L Blood Urea Nitrogen 19 MG/DL Creatinine 1.20 MG/DL Estimat Glomerular Filtration 76 ML/MIN Rate Random Glucose 122 MG/DL Calcium Level 8.5 MG/DL Phenytoin (Dilantin) Level 13.4 MCG/ML Physical Exam General General Appearance: No Acute Distress, Comfortable, Obese Eyes Eye Exam: Sclera White, Extraocular Movement Intact Ears & Nose Ears & Nose Exam: Nasal Mucosa [place] Throat Throat Exam: Oral Mucosa [place] & Moist Neck Neck Exam: Neck Supple, Trachea Midline Pulmonary Resp Exam: Clear Bilaterally, Breath Sounds Equal Cardiology CV Exam: Regular, Normal Sinus Rhythm Gastrointestinal/Abdomen GI Exam: Soft, Non-Tender, Bowel Sounds Present Integumentary Skin Exam: Warm, Dry Extremeties Extremities Exam: No Edema, Pedal Pulses Palpable Neurologic Neuro Exam: Alert, Awake, Oriented, Speech Clear, Moving All Extremities Neuro Remarks left sided weakness 4/5 both upper & lower ext Psychiatric Psych Exam: Appropriate Responses PUD Prophylasis PUD Prophylaxis: Protonix Assessment/Plan Assessment/Plan ASSESSMENT: . Rule out recurrent CVA. . Recurrent Seizure disorder / low dilantin level. . Hx CVA w mild left residual weakness. . Hx of Congestive heart failure. . Diabetes mellitus type 2. . Hypertension. . Anxiety. . Atrial fibrillation. . Hyperkalemia, mild. . Acute kidney injury versus chronic kidney disease. . Moderate protein-calorie malnutrition. .Obesity PLAN Dilantin 100mg po tid f/u level 13.4 Keppra 750 mg bid topamax was added/ klonopin EEG [p] MRI brain [p]. IV ativan 2 mg x 1 dose ASA/ Eliquis BB CCB statin Peptic ulcer disease prophylaxis with Pepcid diabetic deit accu checks qac & qhs w SSI ss for d/c planning d/w PT & his sister at bedside Nancy Hoyt MD Sep 17, 2016 12:31
[2016-09-17] MEDS ORDERED: LORazepam 2 MG/ML VIAL IV PRN (13:00)
[2016-09-17] MEDS ORDERED: TOPA25TA8 PO (14:27)
[2016-09-17] MEDS ORDERED: DILA100C PO (14:27)
[2016-09-17] MEDS ORDERED: CLON.5 PO (14:27)
[2016-09-17] MEDS ORDERED: KEPP750T PO (14:27)
[2016-09-17 16:00] VITALS: BP 141/82; PULSE 76; RESP 20; TEMP 97.9; O2SAT 98
[2016-09-17] MEDS ORDERED: PILL SPLITTER OTHER PRN (17:30)
[2016-09-17 20:00] VITALS: BP 124/72; PULSE 73; RESP 19; TEMP 98.5; O2SAT 96
[2016-09-17] MEDS: ATORVASTATIN 80 MG TAB PO SCH (21:03)
[2016-09-17] MEDS: QUEtiapine FUMARATE 25 MG TAB PO SCH (21:03)
[2016-09-18] VITALS: BP 130/78; PULSE 77; RESP 18; TEMP 98.6; O2SAT 96
[2016-09-18 04:02] VITALS: BP 136/84; PULSE 73; RESP 18; TEMP 97.1; O2SAT 96
[2016-09-18] MEDS: PHENYTOIN SODIUM 100 MG CAP PO SCH (05:45)
[2016-09-18] MEDS: INSULIN ASPART SUPPLEMENTAL SCALE SQ SCH ×3 (06:40→16:00)
[2016-09-18 08:00] VITALS: BP 117/58; PULSE 75; RESP 16; TEMP 96; O2SAT 95
--- NOTE | 2016-09-18 08:38 | HHI.PR ---
Review/Management Diagnosis/Plan: (1) Seizure disorder Plan: subtherapeutic dilantin levels dil 13.4 09/17 recs neuro stable dil 130mg tid topamax added, continue dilantin and keppra; plan to titrate off dilantin in the future p.t., s.t. follow exam d/c planning to rehab no driving/fall precautions (2) Chronic right arterial ischemic stroke, MCA (middle cerebral artery) Plan: on eliquis continue (3) Atrial fibrillation (4) Anxiety (5) HTN (hypertension) (6) CHF (congestive heart failure) Subjective Subjective Comments No acute events reported; no sz's No headache No chest pain No dyspnea Active Medications Current Medications Medications (Trade) Dose Ordered Sig/Jacey Route Start Time Stop Time Status Last Admin (NS Flush) 2 ml UNSCH PRN IVF 09/16/16 10:15 (Tylenol) 650 mg Q4H PRN PO 09/16/16 12:45 (Cordarone) 200 mg DAILY PO 09/17/16 09:00 09/17/16 09:58 (Norvasc) 10 mg DAILY PO 09/17/16 09:00 09/17/16 09:00 (Eliquis) 2.5 mg BID PO 09/16/16 21:00 09/17/16 21:03 (Aspirin Chew) 81 mg DAILY PO 09/17/16 09:00 09/17/16 09:58 (Lipitor) 80 mg HS PO 09/16/16 21:00 09/17/16 21:03 (Coreg) 25 mg BID PO 09/16/16 21:00 09/17/16 21:03 (KlonoPIN) 0.5 mg TID PO 09/16/16 13:00 09/17/16 18:33 (Lasix) 40 mg DAILY PO 09/17/16 09:00 09/17/16 09:59 (Glucotrol) 5 mg DAILY PO 09/17/16 09:00 09/17/16 09:58 (Apresoline) 25 mg TID PO 09/16/16 13:00 09/17/16 18:33 (Synthroid) 50 mcg DAILY PO 09/17/16 09:00 09/17/16 09:59 (Milk Of Magnesia Liq) 30 ml Q4HR PRN PO 09/16/16 12:45 09/17/16 22:37 (Tears Naturale Opth Soln) 1 drop BID EACH EYE 09/16/16 21:00 09/17/16 21:00 (SEROquel) 25 mg HS PO 09/16/16 21:00 09/17/16 21:03 (Zoloft) 50 mg DAILY PO 09/17/16 09:00 09/17/16 09:58 (Dilantin) 100 mg Q8HR PO 09/16/16 14:00 09/18/16 05:45 (D50w (Vial) Inj) 25 ml UNSCH PRN IV PUSH 09/16/16 12:45 (Glucagon Inj) 1 mg UNSCH PRN OTHER 09/16/16 12:45 (Pepcid) 20 mg BID PO 09/16/16 21:00 09/17/16 21:02 (Topamax) 25 mg Q12HR PO 09/16/16 21:00 09/17/16 21:03 (Keppra) 500 mg Q12HR PO 09/17/16 21:00 09/17/16 21:02 (Keppra) 250 mg BID PO 09/17/16 21:00 09/17/16 21:02 (Pill Splitter) 1 ea UNSCH PRN OTHER 09/17/16 17:30 Allergies Allergies Coded Allergies No Known Allergies (Unverified12/17/15) Review of Systems All other ROS: ROS reviewed as documented in chart Exam I&O / VS 09/17/16 09/17/16 09/18/16 15:00 23:00 07:00 Intake Total 720 ml 240 ml Output Total 600 ml 300 ml 1400 ml Balance 120 ml -60 ml -1400 ml Intake Oral 720 ml 240 ml Output Urine Total 600 ml 300 ml 1400 ml # Bowel Movements 1 0 Vital Signs Date Time Temp Pulse Resp B/P Pulse Ox O2 Delivery O2 Flow Rate FiO2 09/18/16 08:00 96.0 75 16 117/58 95 09/18/16 04:02 97.1 73 18 136/84 96 09/18/16 00:00 98.6 77 18 130/78 96 09/17/16 20:00 98.5 73 19 124/72 96 09/17/16 16:00 97.9 76 20 141/82 98 09/17/16 12:24 96.4 74 20 136/78 98 General: Alert and Oriented, No acute distress Eye: EOMI Respiratory: Non-labored respirations Musculoskeletal: ROM Neurologic: Alert Psychiatric: Cooperative, Appropriate mood & affect Exam Comments perry watson 3, follows, slow speech, mild dysarthria, mild left spastic hemiparesis 4/5 Problem Qualifiers (1) Atrial fibrillation: Qualified Code: I48.91 - Atrial fibrillation, unspecified type (2) HTN (hypertension): Qualified Code: I10 - Essential hypertension (3) CHF (congestive heart failure): Alfred Barber MD Sep 18, 2016 08:38
[2016-09-18] MEDS: CARVEDILOL 12.5 MG TAB PO SCH (10:50)
[2016-09-18] MEDS: LEVOTHYROXINE SODIUM 50 MCG TAB PO SCH (10:50)
[2016-09-18] MEDS: hydrALAZINE HCL 25 MG TAB PO SCH ×3 (10:50→19:04)
[2016-09-18] MEDS: TOPIRAMATE 25 MG TAB PO SCH (10:50)
[2016-09-18] MEDS: SERTRALINE HCL 50 MG TAB PO SCH (10:50)
[2016-09-18] MEDS: APIXABAN 2.5 MG TABLET PO SCH (10:50)
[2016-09-18] MEDS: levETIRAcetam 500 MG TAB PO SCH ×2 (10:51→10:55)
[2016-09-18] MEDS: ASPIRIN 81 MG CHEW TAB PO SCH (10:51)
[2016-09-18] MEDS: AMIODARONE 200 MG TAB PO SCH (10:51)
[2016-09-18] MEDS: glipiZIDE 5 MG TAB PO SCH (10:52)
[2016-09-18] MEDS: FUROSEMIDE 40 MG TAB PO SCH (10:52)
[2016-09-18] MEDS: FAMOTIDINE 20 MG TAB PO SCH (10:52)
[2016-09-18] MEDS: clonazePAM 0.5 MG TAB PO SCH ×3 (10:52→19:04)
[2016-09-18] MEDS: ARTIFICIAL TEARS OPTH SOLN 15 ML BTL EACH EYE SCH (11:10)
--- NOTE | 2016-09-18 11:59 | HHI.PR ---
Subjective History of Present Illness pt could not get MRI done despite of 2 mg IV ativan I just cant lay still otherwise feels well No MORE SEIZURE no twitching/ jerking no headache no N/v no fever or chills No cough or sputum offers no other c/o Vitals/Results Intake & Output 09/17/16 09/17/16 09/18/16 15:00 23:00 07:00 Intake Total 720 ml 240 ml Output Total 600 ml 300 ml 1400 ml Balance 120 ml -60 ml -1400 ml Intake Oral 720 ml 240 ml Output Urine Total 600 ml 300 ml 1400 ml # Bowel Movements 1 0 Vital Signs Vital Signs Date Time Temp Pulse Resp B/P Pulse Ox O2 Delivery O2 Flow Rate FiO2 09/18/16 08:00 96.0 75 16 117/58 95 09/18/16 04:02 97.1 73 18 136/84 96 09/18/16 00:00 98.6 77 18 130/78 96 09/17/16 20:00 98.5 73 19 124/72 96 09/17/16 16:00 97.9 76 20 141/82 98 09/17/16 12:24 96.4 74 20 136/78 98 CBC/BMP: 09/16/16 1019 09/17/16 0800 Physical Exam General General Appearance: No Acute Distress, Comfortable, Obese Eyes Eye Exam: Sclera White, Extraocular Movement Intact Ears & Nose Ears & Nose Exam: Nasal Mucosa [place] Throat Throat Exam: Oral Mucosa [place] & Moist Neck Neck Exam: Neck Supple, Trachea Midline Pulmonary Resp Exam: Clear Bilaterally, Breath Sounds Equal Cardiology CV Exam: Regular, Normal Sinus Rhythm Gastrointestinal/Abdomen GI Exam: Soft, Non-Tender, Bowel Sounds Present Integumentary Skin Exam: Warm, Dry Extremeties Extremities Exam: No Edema, Pedal Pulses Palpable Neurologic Neuro Exam: Alert, Awake, Oriented, Speech Clear, Moving All Extremities Neuro Remarks left sided weakness 4/5 both upper & lower ext Psychiatric Psych Exam: Appropriate Responses PUD Prophylasis PUD Prophylaxis: Protonix Assessment/Plan Assessment/Plan ASSESSMENT: . Rule out recurrent CVA. . Recurrent Seizure disorder / low dilantin level. . Hx CVA w mild left residual weakness. . Hx of Congestive heart failure. . Diabetes mellitus type 2. . Hypertension. . Anxiety. . Atrial fibrillation. . Hyperkalemia, mild. . Acute kidney injury versus chronic kidney disease. . Moderate protein-calorie malnutrition. .Obesity PLAN Dilantin 130mg po tid Keppra 750 mg bid topamax / klonopin EEG [p] d/w Dr jossue Conroy MRI brain ,suspicion for stroke w very low ASA/ Eliquis BB CCB statin Peptic ulcer disease prophylaxis with Pepcid diabetic deit accu checks qac & qhs w SSI medically stavble for d.c d/c to [facility] today see [facility] see Orders fu pcp f/u Neurology d/w PT d/w Nancy Mcbride MD Sep 18, 2016 11:59
[2016-09-18 12:00] VITALS: BP 140/87; PULSE 75; RESP 19; TEMP 95.4; O2SAT 96
[2016-09-18] MEDS ORDERED: PHENYTOIN SODIUM 30 MG CAP PO SCH (14:00)
[2016-09-18] MEDS ORDERED: PHENYTOIN SODIUM 100 MG CAP PO SCH (14:00)
[2016-09-18 16:06] VITALS: BP 127/80; PULSE 68; RESP 19; TEMP 96.1; O2SAT 97
--- NOTE | 2016-09-18 18:33 | MG ---
cc: CLEMENTINE CANTRELL M.D. Lab No: Date: 09/18/2016 Age: Sex: M Race: An EEG was obtained on this 56-year-old patient with history of involuntary movements and twitching. MEDICATIONS 1. Keppra. 2. Topamax. 3. Clonazepam. 4. Phenytoin etc.. This EEG shows frequent, essentially nearly rhythmic right central parietal occipital slowing with associated sharp discharges. These discharges evolve at approximately every 0.5 to 2 seconds. It is not associated with any obvious clinical seizure activity. The patient is snoring quite often. There are some beta rhythms centrally and frontally. There are some alpha rhythms and probably sleepy spindles bilaterally. Photic stimulation was unremarkable. The patient briefly awakens and the background seems to be reactive and more so on the left than right. INTERPRETATION Abnormal EEG because of frequent, nearly rhythmic right parietal occipital sharp discharges and slowing which are suggestive of underlying structural abnormality with epileptiform features. No ictal pattern present. MD NED Avilez/KK /6:15 PM /6:28 PM
== END 2016-09-18 19:16 ==
LOC: NEPE 09:52 → NEDA 12:15 → INTOOBSV 12:15 → N05A 15:14
PROVIDERS: ADMIT Specialist; ATTEND Specialist
DX: G40.89 Other seizures (principal); I50.9 Heart failure, unspecified; I48.91 Unspecified atrial fibrillation; I13.0 Hypertensive heart and chronic kidney disease with heart failure and stage 1 through stage 4 chronic kidney disease, or unspecified chronic kidney disease; N18.9 Chronic kidney disease, unspecified; E11.22 Type 2 diabetes mellitus with diabetic chronic kidney disease; E44.0 Moderate protein-calorie malnutrition; E87.5 Hyperkalemia; F41.9 Anxiety disorder, unspecified; F03.90 Unspecified dementia, unspecified severity, without behavioral disturbance, psychotic disturbance, mood disturbance, and anxiety; I69.354 Hemiplegia and hemiparesis following cerebral infarction affecting left non-dominant side; E66.9 Obesity, unspecified; Z68.42 Body mass index [BMI] 45.0-49.9, adult; Z79.01 Long term (current) use of anticoagulants
CPT/HCPCS: 70450; 80048; 80053; 80177; 80185; 80307; 80320; 81001; 82607; 82948; 84181; 84443; 85025; 85652; 92523; 92610; 95819; 96374; 97162; 99285; G0378; G8987; G8988; J1650; J2060; J7030; Q2009; 76937; 83520